=== PATIENT | female | born 1985 | race Caucasian/White ===

== ENCOUNTER 2016-05-23 16:07 | Emergency (ER) | payer SELFPAY ==
[~2016-05-23] VITALS: Ht 160 cm; Wt 50.8 kg
[2016-05-23] MEDS ORDERED: ONDANSETRON HCL/PF 4 MG/2 ML VIAL ONE (16:27)
[2016-05-23] MEDS ORDERED: IV SET PRIMARY 1 EA INFUS.SET MC ONE (16:27)
[2016-05-23] MEDS ORDERED: IV NS 0.9% 1,000 ML ONE ×2 (16:27→18:33)
[2016-05-23] MEDS ORDERED: ONDANSETRON HCL/PF - ER 4 MG/2 ML VIAL IV ONE (16:30)
[2016-05-23] MEDS ORDERED: IV NS 0.9% 1,000 ML BAG IV ONE ×2 (16:30→18:30)
[2016-05-23 16:41] LABS: BASOPHILS # (AUTO) 0.4 /CMM (0.0-0.2); BASOPHILS % (AUTO) 2.4 % (0.0-2.0); DIFF TOTAL % 100 %; EOSINOPHILS % (AUTO) 0.1 % (0.0-6.0); HEMATOCRIT 50 % (33-45); HEMOGLOBIN 16.7 g/dL (11.5-14.8); LYMPHOCYTES # (AUTO) 0.2 /CMM (0.8-4.8); LYMPHOCYTES % (AUTO) 1.3 % (20.0-44.0); MEAN CORPUSCULAR HEMOGLOBIN 30 PG (26.0-33.0); MEAN CORPUSCULAR HGB CONC 33 g/dl (31.0-36.0); MEAN CORPUSCULAR VOLUME 90 fL (82-100); MONOCYTES # (AUTO) 0.8 /CMM (0.1-1.30); MONOCYTES % (AUTO) 4.9 % (2.0-12.0); NEUTROPHILS # (AUTO) 14.5 /CMM (1.8-8.9); NEUTROPHILS % (AUTO) 91.3 % (43.0-81.0); PLATELET COUNT (AUTO) 448 /CMM (150-450); RED BLOOD CELL COUNT(AUTO) 5.59 MIL/uL (4.0-5.2); WHITE BLOOD COUNT (AUTO) 15.9 K/uL (4.3-11.0)
[2016-05-23 16:51] LABS: CALCIUM, SERUM 9.9 mg/dL (8.5-10.1); CREATININE 1.6 mg/dL (0.6-1.3); POTASSIUM 5.4 mmol/L (3.5-5.1)
[2016-05-23 16:57] LABS: ALBUMIN 4.9 g/dL (3.4-5.0); BILIRUBIN,DIRECT 0.2 mg/dL (0.0-0.2); BILIRUBIN,TOTAL 1.1 mg/dL (0.2-1.0); INDIRECT BILIRUBIN 0.9 mg/dL (0.0-1.1)
[2016-05-23 18:06] LABS: KETONES,URINE 40 (NEGATIVE); LEUKOCYTE ESTERASE ,URINE Negative (NEGATIVE); PH,URINE 5.5 (5.0-8.0)
[2016-05-23 18:08] LABS: PREGNANCY TEST URINE QUAL NEGATIVE (NEGATIVE)
[2016-05-23 18:09] LABS: ADD UA MICROSCOPIC YES
[2016-05-23 18:27] LABS: ADD URINE CULTURE NO; MUCUS,URINE MANY /LPF (None Seen); WBC,URINE 2-3/HPF /HPF (0-3)
[2016-05-23 19:46] VITALS: BP 104/64
== END 2016-05-23 19:47 | disposition home or self-care (01) ==
LOC: ER 16:09
DX: E86.0 Dehydration (principal); R11.2 Nausea with vomiting, unspecified; R19.7 Diarrhea, unspecified; N17.9 Acute kidney failure, unspecified; D72.829 Elevated white blood cell count, unspecified; E11.65 Type 2 diabetes mellitus with hyperglycemia; Z90.49 Acquired absence of other specified parts of digestive tract
CPT/HCPCS: 36415; 80048; 80076; 81001; 82272; 82962; 83690; 84703; 85025; 87015; 87045; 87427 ×3; 87493; 96361; 96374; 99284; A4606; J2405; J7030 ×2; Z7610; 81000-TC

== ENCOUNTER 2017-10-07 00:09 | Inpatient (IN) | payer BC ==
[~2017-10-07] VITALS: Ht 160 cm; Wt 51.3 kg
--- NOTE | 2017-10-07 00:09 | NUR ---
bb self; "right arm swelling x 2 days" VSS NAD A/OX4 ABLE TO MAKE NEEDS KNOWN. WILL CONTINUE TO MONITOR FOR ANY CHANGES DURING THE SHIFT.
[2017-10-07] MEDS ORDERED: IV NS 0.9% 1,000 ML BAG IV ONE ×2 (00:30→02:30)
[2017-10-07 00:43] LABS: BASOPHILS % (AUTO) 0.4 % (0.0-2.0); EOSINOPHILS % (AUTO) 0.7 % (0.0-6.0); HEMATOCRIT 42 % (33-45); HEMOGLOBIN 13.8 g/dL (11.5-14.8); LYMPHOCYTES # (AUTO) 1.9 /CMM (0.8-4.8); LYMPHOCYTES % (AUTO) 19.9 % (20.0-44.0); MEAN CORPUSCULAR HEMOGLOBIN 30 PG (26.0-33.0); MEAN CORPUSCULAR HGB CONC 33 g/dl (31.0-36.0); MEAN CORPUSCULAR VOLUME 90 fL (82-100); MONOCYTES # (AUTO) 0.8 /CMM (0.1-1.30); MONOCYTES % (AUTO) 8.1 % (2.0-12.0); NEUTROPHILS # (AUTO) 6.8 /CMM (1.8-8.9); NEUTROPHILS % (AUTO) 70.9 % (43.0-81.0); PLATELET COUNT (AUTO) 403 /CMM (150-450); RDW COEFFICIENT OF VARIATION 12.7 (11.5-15.0); RED BLOOD CELL COUNT(AUTO) 4.64 MIL/uL (4.0-5.2); WHITE BLOOD COUNT (AUTO) 9.6 K/uL (4.3-11.0)
[2017-10-07 00:44] LABS: APPEARANCE,URINE CLEAR (CLEAR); BILIRUBIN,URINE NEGATIVE (NEGATIVE); BLOOD, URINE 2+ Ery/uL (NEGATIVE); COLOR,URINE YELLOW (YELLOW); KETONES,URINE NEGATIVE (NEGATIVE); LEUKOCYTE ESTERASE ,URINE NEGATIVE (NEGATIVE); NITRITE, URINE NEGATIVE (NEGATIVE); PROTEIN,URINE NEGATIVE (NEGATIVE); UGLUCOSE TRACE mg/dL (NEGATIVE); UROBILINOGEN,URINE 0.2 EU/dL (0.2)
[2017-10-07 00:45] LABS: BACTERIA,URINE None seen /HPF (None Seen); SQUAMOUS EPITHELIAL CELL,UR Few /HPF (None Seen); WBC,URINE 0-2 /HPF (0-3)
[2017-10-07 00:53] LABS: CREATININE 0.9 mg/dL (0.6-1.3); POTASSIUM 3.7 mmol/L (3.5-5.1)
--- NOTE | 2017-10-07 00:54 | NUR ---
PATIENT REFUSED IV LINE. OPTED FOR BLOOD DRAW FROM DIRECTOR OF STRATEGIC COMMUNICATIONS INSTEAD. ER MD SMITH MADE AWARE
[2017-10-07 00:57] LABS: CALCIUM, SERUM 8.6 mg/dL (8.5-10.1)
[2017-10-07 02:06] LABS: CREATINE KINASE MB 50.3 ng/mL (0-3.6)
--- NOTE | 2017-10-07 02:36 | NUR ---
320-1 [facility] BED DX-RHABDOMYOLYSIS
[2017-10-07] MEDS ORDERED: INSU100C4 SQ (03:16)
--- NOTE | 2017-10-07 03:16 | NUR ---
REPORT GIVEN TO KIARRA
[2017-10-07 03:30] VITALS: BP 124/77
[2017-10-07 03:45] VITALS: BP 124/77
--- NOTE | 2017-10-07 03:45 | NUR ---
RN MS RECEIVING NOTES RECEIVED PATIENT VIA GURNEY FROM ER. PATIENT IS ALERT AND ORIENTED X4, VERBALLY RESPONSIVE, ABLE TO MAKE NEEDS KNOWN. BREATHING EVEN AND UNLABORED. NO SOB NOTED. DENIES PAIN OR DISCOMFORT RIGHT NOW. IV ON LEFT AC #22 INTACT AND PATENT. EXPLAINED THE PROCESS OF ADMISSION. ALL OTHER NEEDS ATTENDED TO. CALL LIGHT WITHIN REACH. BED ON LOWEST LOCKED POSITION. WILL CONTINUE TO MONITOR.
--- NOTE | 2017-10-07 03:50 | NUR ---
RN MS NOTES PAGED DR. MOSS FOR ADMISSION ORDERS AND MED RECON. AWAITING CALL BACK.
[2017-10-07] MEDS ORDERED: DEXTROSE 50%-WATER 50 ML DISP.SYRIN IV PRN (05:00)
[2017-10-07] MEDS ORDERED: ZOLPIDEM TARTRATE 5 MG TABLET PO PRN (05:00)
[2017-10-07] MEDS ORDERED: ACETAMINOPHEN 325 MG TABLET PO PRN (05:00)
[2017-10-07] MEDS ORDERED: MAGNESIUM HYDROXIDE 30 ML UDC PO PRN (05:00)
[2017-10-07] MEDS ORDERED: Z GUARD REMEDY 2 OZ OINT TP PRN (05:00)
[2017-10-07] MEDS ORDERED: ONDANSETRON HCL/PF 4 MG/2 ML VIAL IVP PRN (05:00)
[2017-10-07] MEDS ORDERED: INSULIN REGULAR, HUMAN 100 UNIT/ML 3 ML VIAL SQ PRN (05:00)
[2017-10-07] MEDS ORDERED: HYDROCODONE/APAP 5/325MG 1 EACH TABLET PO PRN (05:00)
[2017-10-07] MEDS ORDERED: MAG HYDROX/AL HYDROX/SIMETH 30 ML UDC PO PRN (05:00)
[2017-10-07] MEDS: IV NS 0.9% 1,000 ML IV PRN ×3 (05:17→17:45)
--- NOTE | 2017-10-07 06:55 | NUR ---
RN MS NOTES PATIENT REFUSES TO HAVE HER BLOOD SUGAR CHECKED. PATIENT HAS HER OWN BLOOD SUGAR MONITORING DEVICE ATTACHED TO HER RIGHT HIP - MONITORING HER BLOOD SUGAR EVERY 5 MINUTES. SHE ALSO HAS A NOVOLOG PUMP (A CATHETER IMPLANTED) THAT GIVES HER INSULIN EVERY 5 MINUTES. PER PATIENT IT GIVES HER ABOUT 0.45-0.60 UNITS OF INSULIN. SHE CAN ALSO ADJUST THE INSULIN DOSE DEPENDING ON HER BLOOD SUGAR DURING MEALS. PER PATIENT MAKING IT A TOTAL OF ABOUT 11 UNITS A DAY. PATIENT STRONGLY REFUSES BLOOD SUGAR CHECKED AND WOULD LIKE DR. MOSS TO BE INFORMED OF BOTH OF HER DEVICES. PAGED DR. MOSS TO MAKE HIM AWARE - AWAITING CALL BACK.
--- NOTE | 2017-10-07 07:00 | NUR ---
RN MS NOTES DR. MOSS CALLED BACK AND MADE AWARE OF HER BLOOD SUGAR AND INSULIN DEVICE. PER DR. MOSS OK TO D/C BLOOD SUGAR CHECKS AND HUMULIN. NOTED AND CARRIED OUT
--- NOTE | 2017-10-07 07:01 | NUR ---
RN MS CLOSING NOTES PATIENT IN BED AWARE, ALERT AND ORIENTED X4, VERBALLY RESPONSIVE, ABLE TO MAKE NEEDS KNOWN. BREATHING EVEN AND UNLABORED. NO SOB NOTED. DENIES PAIN OR DISCOMFORT RIGHT NOW. IV ON LEFT AC #22 INTACT AND PATENT - CURRENTLY INFUSING NS @ 150ML/HR. ALL OTHER NEEDS ATTENDED TO. CALL LIGHT WITHIN REACH. BED ON LOWEST LOCKED POSITION. WILL ENDORSE TO ONCOMING NURSE FOR CONTINUITY OF CARE.
[2017-10-07] MEDS ORDERED: BLOOD SUGAR DIAGNOSTIC 1 EACH STRIP IN SCH (07:30)
--- NOTE | 2017-10-07 07:40 | NUR ---
RN OPENING NOTES RECEIVED PATIENT AWAKE ALERT AND VERBALLY RESPONSIVE, ABLE TO MAKE NEEDS KNOWN. RESPIRATIONS EVEN AND UNLABORED, DENIES ANY PAIN OR DISCOMFORT AT THIS TIME. IV ACCESS TO LAC PATENT AND INTACT NO REDNESS OR INFILTRATION NOTED. SAFETY MEASURES IN PLACE, CALL LIGHT WITHIN EASY REACH WILL CONTINUE TO MONITOR
[2017-10-07 08:00] VITALS: BP 110/53
[2017-10-07 17:17] LABS: CREATINE KINASE MB 26.9 ng/mL (0-3.6)
--- NOTE | 2017-10-07 18:40 | NUR ---
RN CLOSING NOTES PATIENT AWAKE ALERT AND VERBALLY RESPONSIVE, ABLE TO MAKE NEEDS KNOWN. RESPIRATIONS EVEN AND UNLABORED, DENIES ANY PAIN OR DISCOMFORT AT THIS TIME. IV ACCESS TO LAC PATENT AND INTACT NO REDNESS OR INFILTRATION NOTED. PT WITH SWELLING TO ROELE MD AWARE, DENIES NEED FOR PAIN MEDICATION AT THIS TIME, PT EDUCATED TO RAISE RUE ON PILLOW, SAFETY MEASURES IN PLACE, CALL LIGHT WITHIN EASY REACH WILL CONTINUE TO MONITOR AND ENDORSE TO NEXT SHIFT FOR CONTINUITY OF CARE
--- NOTE | 2017-10-07 19:10 | NUR ---
MS RN OPENING NOTES: RECEIVED PT AND IS BED ON ROOM AIR. MOTHER AT BEDSIDE. PT HAS IV INTACT AND IS BEING INFUSED WITH IV NS AT 150ML/HR. NO SOB NOTED. NO S/S OF DISTRESS. PT HAS INSULIN PUMP AND LAST BLOOD GLUCOSE LEVEL ACCORDING TO PUMP WAS 160. PT ALSO FINISHING UP DINNER AND SAID PUMP CHECKS HER BLOOD SUGAR EVERY 5 MINUTES. SHE HAS CONTROL OF HOW MUCH INSULIN IS TO BE GIVEN. CALL LIGHT WITHIN PT'S REACH. BED KEPT IN LOW, LOCKED POSITION, AND SIDE RAILS X 2UP. WILL CONTINUE TO MONITOR PT.
[2017-10-07 20:00] VITALS: BP 140/72
[2017-10-07] MEDS: LOPERAMIDE HCL (2 MG CAP) 2 MG CAPSULE PO PRN (20:35)
--- NOTE | 2017-10-07 20:35 | NUR ---
MS RN NOTES: PT REQUESTED FOR IMODIUM SHE IS ALWAYS HAVING DIARRHEA. PT WAS GIVEN IMODIUM 2MG PO. WILL CONTINUE TO MONITOR.
[2017-10-08] MEDS: IV NS 0.9% 1,000 ML IV PRN ×4 (00:21→22:16)
--- NOTE | 2017-10-08 06:29 | NUR ---
MS RN CLOSING NOTES: ALL NEEDS WERE ATTENDED AND ANTICIPATED FOR. PT CURRENTLY IN BED LAYING DOWN AND IS AWAKE ON HER PHONE. PT IS A/OX4. PT ON ROOM AIR. NO SOB NOTED. NO S/S OF DISTRESS. IV REMAINS INTACT AND PT IS BEING INFUSED WITH IV NS AT 150ML/HR. CALL LIGHT WITHIN PT'S REACH. BED KEPT IN LOW, LOCKED POSITION, AND SIDE RAILS X 2UP. WILL ENDORSE TO AM NURSE FOR GURVINDER.
[2017-10-08 07:16] LABS: BASOPHILS % (AUTO) 0.5 % (0.0-2.0); EOSINOPHILS % (AUTO) 1.8 % (0.0-6.0); HEMATOCRIT 36 % (33-45); LYMPHOCYTES # (AUTO) 1.7 /CMM (0.8-4.8); LYMPHOCYTES % (AUTO) 24.4 % (20.0-44.0); MEAN CORPUSCULAR HEMOGLOBIN 30 PG (26.0-33.0); MEAN CORPUSCULAR HGB CONC 33 g/dl (31.0-36.0); MEAN CORPUSCULAR VOLUME 91 fL (82-100); MONOCYTES # (AUTO) 0.7 /CMM (0.1-1.30); MONOCYTES % (AUTO) 10.8 % (2.0-12.0); NEUTROPHILS # (AUTO) 4.3 /CMM (1.8-8.9); NEUTROPHILS % (AUTO) 62.5 % (43.0-81.0); PLATELET COUNT (AUTO) 327 /CMM (150-450); RDW COEFFICIENT OF VARIATION 13.2 (11.5-15.0); RED BLOOD CELL COUNT(AUTO) 3.98 MIL/uL (4.0-5.2); WHITE BLOOD COUNT (AUTO) 6.9 K/uL (4.3-11.0)
--- NOTE | 2017-10-08 07:18 | NUR ---
MS/RN Patient received Patient received from fast food shift lead. A/O X4, no respiratory distress noted. Right arm remains with swelling, denies pain at this time. IV fluids infusing at 150ml/hr, no signs of infiltration seen. Call light within reach, bed in low setting, will continue to monitor ans ensure safety.
[2017-10-08 07:23] LABS: CREATININE 0.6 mg/dL (0.6-1.3); MAGNESIUM 1.7 mg/dL (1.8-2.4); PHOSPHORUS 3.3 mg/dL (2.5-4.9); POTASSIUM 3.7 mmol/L (3.5-5.1)
[2017-10-08 07:32] LABS: THYROID STIMULATING HORMONE 1.657 uIU/mL (0.358-3.74)
[2017-10-08 07:53] VITALS: BP 109/63
[2017-10-08 08:00] VITALS: BP 109/63
--- NOTE | 2017-10-08 09:17 | NUR ---
MS/RN Insurance questions Patient concerned that her stay here is not covered by her insurance company, lining caser Izabella made aware. Stated that she would ask somebody from admitting to come speak with the patient.
--- NOTE | 2017-10-08 11:00 | NUR ---
MS/RN Labs Morning labs reviewed: -mag 1.7 Will notify pharmacy to order replacement.
[2017-10-08] MEDS: Magnesium 1GM/D5W 100ML PREMIX 100 ML IV SCH ×2 (11:21→12:14)
[2017-10-08 12:21] LABS: CREATINE KINASE MB 16.2 ng/mL (0-3.6)
--- NOTE | 2017-10-08 12:24 | NUR ---
MS/RN Magnesium Both bags of magnesium infused, no reaction noted.
--- NOTE | 2017-10-08 12:26 | NUR ---
MS/[place] [address].
--- NOTE | 2017-10-08 15:32 | NUR ---
MS/RN Rounds Patient continues to wait to be evaluated by Onesimo Daiz NP, for possible discharge to home later today. All paperwork prepared, will require sick certificate for work upon discharge.
[2017-10-08 16:00] VITALS: BP 111/61
[2017-10-08 16:30] VITALS: BP 111/61
--- NOTE | 2017-10-08 18:55 | NUR ---
MS/RN End note Awaiting review by DNP. All needs attended. Will endorse to retail shift supervisor.
--- NOTE | 2017-10-08 19:15 | NUR ---
MS RN OPENING NOTES: RECEIVED PT ON ROOM AIR AND IS TOLERATING WELL. PT JUST AWAITING FOR DOCTOR TO SEE HER SHE HAS NOT BEEN SEEN BY A DOCTOR. PT HAS IV FLUIDS AND IS BEING INFUSED WITH IV NS AT 150ML/HR. PT HAS HER OWN INSULIN PUMP. JUICES AT BEDSIDE. NO SOB NOTED. NO S/S OF DISTRESS. CALL LIGHT WITHIN PT'S REACH. BED KEPT IN LOW, LOCKED POSITION, AND SIDE RAILS X 2UP. WILL CONTINUE TO MONITOR PT.
[2017-10-08 19:53] VITALS: BP 114/65
[2017-10-08] MEDS: LOPERAMIDE HCL (2 MG CAP) 2 MG CAPSULE PO PRN (19:53)
--- NOTE | 2017-10-08 19:53 | NUR ---
MS RN NOTES: PT REQUESTING FOR IMODIUM SHE DOES NOT WANT TO HAVE AN ACCIDENT IN THE HOSPITAL. PT ADMINISTERED IMODIUM 2MG PO. WILL CONTINUE TO MONITOR.
[2017-10-09] MEDS: IV NS 0.9% 1,000 ML IV PRN (04:16)
--- NOTE | 2017-10-09 06:22 | NUR ---
MS RN NOTES: CALLED LAB AND OK FOR THEM TO ADD ON ORDERS TOTAL CREATINE KINASE, CK-MB (CK-2) LABS IN ADDITION WITH AM LABS. INFORMED RESOURCE ENGINEER THAT WAS HERE ON THE FLOOR WELL.
--- NOTE | 2017-10-09 06:52 | NUR ---
MS RN CLOSING NOTES: ALL NEEDS WERE ATTENDED AND ANTICIPATED FOR. PT ASLEEP AT THIS TIME AND ANTICIPATING TO BE DISCHARGED AND SEEN BY A DOCTOR SHE WAS NOT SEEN AT ALL YESTERDAY. PT HAS CALL LIGHT WITHIN PT'S REACH. PT HAS IV ON L AC AND IS BEING INFUSED WITH NS AT 150ML/HR. BED KEPT IN LOW, LOCKED POSITION, AND SIDE RAILS X 2UP. WILL ENDORSE TO AM NURSE FOR GURVINDER.
[2017-10-09 07:24] LABS: BASOPHILS # (AUTO) 0.1 /CMM (0.0-0.2); BASOPHILS % (AUTO) 0.7 % (0.0-2.0); EOSINOPHILS % (AUTO) 1.3 % (0.0-6.0); HEMATOCRIT 34 % (33-45); HEMOGLOBIN 11.4 g/dL (11.5-14.8); LYMPHOCYTES # (AUTO) 1.4 /CMM (0.8-4.8); LYMPHOCYTES % (AUTO) 18.8 % (20.0-44.0); MEAN CORPUSCULAR HEMOGLOBIN 31 PG (26.0-33.0); MEAN CORPUSCULAR HGB CONC 33 g/dl (31.0-36.0); MEAN CORPUSCULAR VOLUME 91 fL (82-100); MONOCYTES # (AUTO) 0.7 /CMM (0.1-1.30); NEUTROPHILS # (AUTO) 5.2 /CMM (1.8-8.9); NEUTROPHILS % (AUTO) 69.2 % (43.0-81.0); PLATELET COUNT (AUTO) 315 /CMM (150-450); RDW COEFFICIENT OF VARIATION 12.8 (11.5-15.0); RED BLOOD CELL COUNT(AUTO) 3.73 MIL/uL (4.0-5.2); WHITE BLOOD COUNT (AUTO) 7.4 K/uL (4.3-11.0)
[2017-10-09 07:33] LABS: CALCIUM, SERUM 7.8 mg/dL (8.5-10.1); CREATININE 0.6 mg/dL (0.6-1.3); POTASSIUM 3.8 mmol/L (3.5-5.1)
--- NOTE | 2017-10-09 07:37 | NUR ---
MS RN OPENING NOTES RECEIVED PT LAYING IN BED RESTING COMFORTABLY. A/O X4, AFEBRILE. RESPIRATIONS ARE EVEN AND UNLABORED, NOT IN ANY ACUTE DISTRESS NOTED. PT ABLE TO MOVE BOTH UPPER AND LOWER EXTREMITIES AND PERFORM AROM/PROM. PT C/O PL 2, STATED 2 IS TOLERABLE AND DOES "NOT NEED ANY PAIN MEDICATION." NO C/O SOB, N/V NOTED. IV SITE IS INTACT, NO INFILTRATION NOTED. DRESSING KEPT CLEAN AND DRY. IV FLUIDS INFUSING AND TOLERATING WELL. SAFETY MEASURES ARE IN PLACE. WILL CONTINUE TO MONITOR THROUGHOUT SHIFT FOR CONTINUITY OF CARE.
[2017-10-09 07:43] LABS: CREATINE KINASE MB 8.3 ng/mL (0-3.6)
[2017-10-09 08:00] VITALS: BP 93/56
--- NOTE | 2017-10-09 11:45 | NUR ---
MS VIDEO GAME PROGRAMMER NOTE PT DISCHARGED TO HOME VIA PERSONNEL VEHICLE IN STABLE CONDITION. ALL NEEDS MET AND RENDERED. PT REMAINS A/O X4, RESPIRATIONS ARE EVEN AND UNLABORED, NOT IN ANY ACUTE DISTRESS NOTED. PT DENIES ANY PAIN AT THIS TIME, NO C/O SOB, N/V. RIGHT ARM NOTED WITH DECREASED SWELLING, NO SWELLING TO LEFT ARM. PHOTOS TAKEN AND PLACED IN CHART. ABDOMEN IS SOFT AND NONDISTENDED. DENIES ANY BLADDER DISCOMFORT. EXPLAINED DISCHARGE PAPERWORK TO PT WITH VERBAL AND WRITTEN AGREEMENT. ALL BELONGINGS TAKEN AND LIST SIGNED. IV REMOVED, APPLIED PRESSURE AND TOLERATED WELL W/ NO ACTIVE BLEEDING NOTED. ID BAND REMOVED. PT ACCOMPANIED DOWN TO PERSONNEL VEHICLE WITH 1 STAFF. PT LEFT IN STABLE CONDITION.
== END 2017-10-09 12:04 | disposition home or self-care (01) | DRG 558 ==
LOC: ER 00:13 → MED 02:51
DX: M62.82 Rhabdomyolysis (principal); K51.90 Ulcerative colitis, unspecified, without complications; E10.9 Type 1 diabetes mellitus without complications; Z90.49 Acquired absence of other specified parts of digestive tract
CPT/HCPCS: 36415; 80048-TC; 80061-TC; 81000-TC; 82550-TC; 82553-TC; 83735-TC; 84100-TC; 84443-TC; 84703-TC; 85025-TC; 87081-TC; 93930-TC; 93971-TC; A4606; J1815; J3475; J7030; Z7610